=== PATIENT | female | born 1990 | race Caucasian/White ===

== ENCOUNTER 2017-12-19 11:11 | Outpatient (CLI) | payer BC | END 2017-12-19 13:11 | disposition home or self-care (01) | LOC: EDUNIT# 11:11 → LAB 11:11 | DX: J38.1 Polyp of vocal cord and larynx (principal) ==

== ENCOUNTER 2017-12-27 08:59 | Outpatient (CLI) | payer BC ==
[2017-12-19 11:51] LABS: BLOOD UREA NITROGEN 15 mg/dL (7-18); CREATININE 0.9 MG/DL (0.55-1.30)
--- NOTE | 2017-12-30 10:59 | Diagnostic Imaging Report ---
Indication: 27-year-old female with left vocal cord polyp Technique: Technique coronal T2 STIR, sagittal T 2 fast spin echo, coronal T1 fast spin echo, axial T2 STIR, axial T1 fast spin echo, axial T2 fat saturated, precontrast axial T1 fat saturated, postcontrast axial, coronal, and delayed axial T1 spin-echo images obtained through the neck. Comparison: Findings: There is an exophytic polypoid mass arising in the left side of the larynx at or just above the the true vocal cord. This measures approximately 9 x 9 mm in diameter. On the T2-weighted images, this is uniformly high signal intensity which is limited to the lesion itself. The subjacent vocal cord appears unremarkable.. On the T1-weighted images, there is intermediate in intensity, intensity similar to that of muscle. On the postcontrast images, there is enhancement of the periphery of the lesion, but not more centrally. The enhancing area measures approximately 5 x 4 mm. No significant change in enhancement pattern is demonstrated between the early and the delayed images. No cervical adenopathy demonstrated. No cervical mass seen elsewhere. No other unusual contrast enhancement is demonstrated. The thyroid is unremarkable. There is bilateral maxillary sinus polyposis. The cervical spine and spinal cord appear unremarkable. The lung apices appear unremarkable. Impression: 9 x 9 mm polypoid exophytic mass arising in the left larynx, at or just above the level of the true vocal cord. This appears to be entirely exophytic. Signal characteristics are nonspecific. There is uniform very high T2 signal. However, the enhancement pattern is less characteristic, as there is only enhancement of the periphery of the lesion and no evidence of delayed filling in. No evidence of cartilaginous invasion or lymphadenopathy. 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 Leal at the time of interpretation
== END 2017-12-27 10:59 | disposition home or self-care (01) ==
LOC: MRI 08:59
DX: J38.1 Polyp of vocal cord and larynx (principal); J32.0 Chronic maxillary sinusitis
CPT/HCPCS: 36415; 70543; 82565; 84520; A9585

== ENCOUNTER 2018-01-07 05:47 | Day surgery (SDC) | payer BC ==
[~2018-01-07] VITALS: Ht 167.6 cm; Wt 74.8 kg
[2018-01-07] VITALS (9 sets, daily range): BP systolic 121–134; BP diastolic 74–87
[2018-01-07] MEDS ORDERED: Propofol 200mg/20ml IV ONE (05:48)
[2018-01-07] MEDS ORDERED: Zemuron 50mg/5ml Inj IV ONE (05:48)
[2018-01-07] MEDS ORDERED: LR 1000ml ONE (05:48)
[2018-01-07] MEDS ORDERED: fentaNYL 100 mcg/2 mL IV ONE (05:48)
[2018-01-07] MEDS ORDERED: Midazolam 2mg/2ml Inj ONE (05:48)
[2018-01-07] MEDS ORDERED: Dexamethasone 4mg/ml vial ONE (05:48)
[2018-01-07] MEDS ORDERED: Lidocaine 1% MPF 10mg/ml 5ml ONE (05:48)
[2018-01-07] MEDS ORDERED: LUTERA1 EACH PO (06:25)
[2018-01-07] MEDS ORDERED: Maxitrol Opth Susp 5ml ONE (07:12)
--- NOTE | 2018-01-07 07:16 | Anethesia Preoperative Eval ---
Anesthesia Pre-op PMH/ROS General Date of Evaluation: Jan 07, 2018 Anesthesiologist: Jakub ASA Score: ASA 2 Mallampati Score Class I : Soft palate, uvula, fauces, pillars visible Class II: Soft palate, uvula, fauces visible Class III: Soft palate, base of uvula visible Class IV: Only hard plate visible Mallampati Classification: Class II Surgeon: Mel Diagnosis: Vocal cord polyp Surgical Procedure: Vocal cord polypectomy, laser excision Anesthesia History: none Family History: no anesthesia problems Allergies: Coded Allergies: PENICILLINS (Verified Allergy, Severe, Hives, 01/07/18) CLARITHROMYCIN (Verified Adverse Reaction, Unknown, halucination, 01/07/18) Medications: see eMAR Past Medical History Cardiovascular: Reports: other - MVP, diagnosed at 21, on no meds, Denies: HTN, CAD, NC, valve dz, arrhythmia Pulmonary: Denies: asthma, COPD, JUNIOR, other Gastrointestinal/Genitourinary: Denies: GERD, CRI, ESRD, other Neurologic/Psychiatric: Reports: depression/anxiety, Denies: dementia, CVA, TIA, other Endocrine: Denies: DM, hypothyroidism, steroids, other HEENT: Reports: other - Vocal cord polyp, Denies: cataract (L), cataract (R), glaucoma, [place] (L), [place] (R) Hematology/Immune: Denies: anemia, DVT, bleeding disorder, other Musculoskeletal/Integumentary: Denies: OA, RA, DJD, DDD, edema, other PSxH Narrative: wisdom teeth Anesthesia Pre-op Phys. Exam Physician Exam Last Vital Signs Date Time Temp Pulse Resp B/P (MAP) Pulse Ox O2 Delivery O2 Flow Rate FiO2 01/07/18 06:24 97.9 89 18 134/80 100 Room Air 97.9 Constitutional: NAD Cardiovascular: RRR Respiratory: CTA Airway Exam Mallampati Score: Class II MO: full ROM: full Teeth: intact Anesthesia Pre-op A/P Labs see chart Urine Test Test 01/07/18 06:00 Urine HCG, Qualitative Negative (NEGATIVE) Studies Pre-op Studies: EKG - sr Risk Assessment & Plan Assessment: ASA II Plan: GA Status Change Before Surgery: No Pre-Antibiotics Drug: Clindamycin 600mg Given Within 1 Hr of Incision: TERRY Ramos M.D. Jan 07, 2018 07:15
[2018-01-07] MEDS ORDERED: Clindamycin 600mg 50 ML IV ONE (07:20)
--- NOTE | 2018-01-07 07:54 | Pre-Procedure Note/Attestation ---
Pre-Procedure Note/Attestation Complete Prior to Procedure Planned Procedure: left Procedure Narrative: Microsuspension laryngoscopy Laser excision vocal cord tumor Indications for Procedure Pre-Operative Diagnosis: Vocal cord tumor Attestation I attest that I discussed the nature of the procedure; its benefits; risks and complications; and alternatives (and the risks and benefits of such alternatives ), prior to the procedure, with the patient (or the patient's legal office machines sales representative). I attest that, if there was a reasonable possibility of needing a blood transfusion, the patient (or the patient's legal office machines sales representative) was given the [facility] standardized written summary, pursuant to the Ronald Leander Blood Safety Act ([place] Health and Safety Code # 1645, as amended). I attest that I re-evaluated the patient just prior to the surgery and that there has been no change in the patient's H&P. IONA STRONG Jan 07, 2018 07:54
[2018-01-07] MEDS ORDERED: ceFAZolin sod 1 GM in D5W 55 ML IV ONE (08:00)
[2018-01-07] MEDS ORDERED: Dexamethasone 4mg/ml vial IVP ONE (08:00)
[2018-01-07] MEDS ORDERED: LR 1000ml 1,000 ML IVLG SCH (08:24)
--- NOTE | 2018-01-07 08:27 | Immediate Post-Op Evaluation ---
Immediate Post-Op Evalulation Immediate Post-Op Evalulation Procedure: Laser laryngoscopy with excision of polyps Date of Evaluation: Jan 07, 2018 Time of Evaluation: 08:54 IV Fluids: 700 Blood Products: 0 Estimated Blood Loss: min Urinary Output: 0 Blood Pressure Systolic: 131 Blood Pressure Diastolic: 74 Pulse Rate: 110 Respiratory Rate: 18 O2 Sat by Pulse Oximetry: 99 Temperature (Fahrenheit): 97.7 Pain Score (1-10): 0 Nausea: No Vomiting: No Complications 0 Patient Status: awake, reacts, patent, none Hydration Status: adequate Drug: Clindamycin 600mg Given Within 1 Hr of Incision: Yes Time Given: 08:00 TERRY MIXON M.D. Jan 07, 2018 08:27
--- NOTE | 2018-01-07 08:28 | 48 Hour Post Anesthesia Eval ---
Post Anesthesia Evaluation Procedure: Laser laryngoscopy with excision of polyps Date of Evaluation: Jan 07, 2018 Time of Evaluation: 09:50 Blood Pressure Systolic: 134 0: 84 Pulse Rate: 80 Respiratory Rate: 20 Temperature (Fahrenheit): 98 O2 Sat by Pulse Oximetry: 100 Airway: patent Nausea: No Vomiting: No Pain Intensity: 0 Hydration Status: adequate Cardiopulmonary Status: at baseline Mental Status/LOC: patient returned to baseline Post-Anesthesia Complications: 0 Follow-up care needed: ready to discharge TERRY MIXON M.D. Jan 07, 2018 08:28
[2018-01-07] MEDS ORDERED: DiphenhydrAMINE 50mg/ml Inj IVP PRN (08:30)
[2018-01-07] MEDS ORDERED: LORazepam Inj 2mg/ml 1ml IV PRN (08:30)
[2018-01-07] MEDS ORDERED: Hydromorphone 0.5mg/0.5ml inj IVP PRN (08:30)
[2018-01-07] MEDS ORDERED: fentaNYL 100 mcg/2 mL IV PRN (08:30)
[2018-01-07] MEDS ORDERED: Midazolam 2mg/2ml Inj IVP PRN (08:30)
--- NOTE | 2018-01-07 09:21 | Brief Operative Note ---
Immediate Post Operative Note Operative Note Pre-op Diagnosis: Vocal cord tumor Procedure: Microsuspension largyngoscopy Laser excision left vocal cord tumor. Post-op Diagnosis: same as pre-op Surgeon: Roxanna Strong Scrap Picker: none Additional Surgeons: none Anesthesiologist: Jakub Anesthesia: general Specimen: yes - Left vocal cord Complications: none Condition: stable Fluids: DrLR 500cc Estimated Blood Loss: minimal Drains: none Packing: none Implant(s) used?: No IONA STRONG Jan 07, 2018 09:21
[2018-01-07] MEDS ORDERED: Norco 5mg/325mg tab ORAL PRN (09:30)
[2018-01-07] MEDS ORDERED: HYDROmorphone 1mg/ml Carpuject SUBQ PRN (09:30)
--- NOTE | 2018-01-07 09:30 | Pre-op HX & Phy Repo 2 SIG ---
DATE OF ADMISSION: 01/07/2018 INDICATIONS FOR PROCEDURE: A 27-year-old female, who has had hoarseness for a few months following a bad cough. On exam, it appears that she has a polyp on her left true vocal fold. It was appeared to be hemorrhagic and MRI was done indicated it is only polyp. It does not extend into the vocal cord itself, but is exophytic. PAST MEDICAL HISTORY: She is allergic to clarithromycin and penicillins. PAST SURGICAL HISTORY: No surgical history. MEDICATIONS: control pills. She did have a test today. She is not . SOCIAL HISTORY: She is single, no children. PHYSICAL EXAMINATION: VITAL SIGNS: She is 167.64 cm, 74.843 kg, and BMI of 26.6. HEENT: Head: Normocephalic. Eyes: PERRA, EOMI. Lips, tongue, pharynx, and neck all normal. Vocal cord on exam last week in my office shows a vocal cord polyp. This was also verified on the MRI scan noted above. CHEST: Clear to A and P. ABDOMEN: Soft and nontender. Normoactive bowel sounds. GENITOURINARY: Not done as they are done on a regular basis by her BEET [employer]UMER and are not pertinent to this procedure. BREASTS: Not done as they are done on a regular basis by her BEET [employer]ER and are not pertinent to this procedure. EXTREMITIES: Grossly normal. NEUROLOGIC: Cranial nerves II through XII grossly normal. ASSESSMENT: Vocal cord tumor. PLAN: Microsuspension laryngoscopy and laser excision of vocal cord polyp, which is hemorrhagic. Jersey Leal M.D. DR: Teresa JOB#: [id number] CC:
--- NOTE | 2018-01-07 22:31 | Discharge Instructions ---
Discharge Instructions Discharge Instructions Follow up with: 3 days in my office-Saturday Diet: soft Resume Normal Activity?: No Activity: light activity Pneumonia Vaccine: pt refused vaccine Influenza Vaccine (Jul to Dec): pt refused vaccine Follow Up Orders pt has printed instruction which were reviewed and given to her pre op in my office last week. Return to Work/School on: Jan 21, 2018 For Surgical Patients Contact your physician for: bleeding, pain, tenderness, redness, swelling, yellowish discharge in the op. site For Congestive Heart Failure Reminder Report to your physician any weight gain of 5 pounds or more in one week. IONA STRONG Jan 07, 2018 22:31
--- NOTE | 2018-01-08 03:01 | Operative Note - Dictated ---
DATE OF OPERATION: 01/07/2018 SURGEON: Jersey Leal M.D. ENGINEERING LEADER: None. ANESTHESIOLOGIST: Dr. Call. ANESTHESIA: Oral endotracheal KIRK tube. General anesthesia. INDICATION FOR SURGERY: The patient with a vascular mass in the posterior part of her left vocal cord. PREOPERATIVE DIAGNOSIS: The patient with a vascular mass in the posterior part of her left vocal cord. POSTOPERATIVE DIAGNOSIS: The patient with a vascular mass in the posterior part of her left vocal cord. PROCEDURE: 1. Microsuspension laryngoscopy. 2. Excision with CO2 laser, left vocal cord tumor. TECHNIQUE: The patient was prepped and draped in usual manner. Time-out was performed. All were alert as this was a laser case. A KIRK tube was used, room air was used, the patient was fine on that. Moist towels were used to cover the patient's face and chest. Dedo scope was placed without difficulty in microsuspension. I was able to visualize the mass well. I then grasped the mass and pulled it medially and with the spot laser doing one spot at a time, not continuous at a setting of 3 and 4 removed the tumor. This is being sent off for permanent section. Please note that a test was done before away from the patient's body on a tongue blade verifying the laser was working. Sponge and needle count was correct. ESTIMATED BLOOD LOSS: 2 mL. COUNTS: None. DRAINS: None. The patient awake, alert, and stable in the operating room and in recovery room postop. I did speak with the family postop. Jersey Leal M.D. DR: NEYMAR JOB#: [id number] CC: LORETO
== END 2018-01-07 10:55 | disposition home or self-care (01) ==
LOC: SUR 05:47
DX: J38.1 Polyp of vocal cord and larynx (principal); J38.3 Other diseases of vocal cords; Z88.0 Allergy status to penicillin; Z79.3 Long term (current) use of hormonal contraceptives; F32.9 Major depressive disorder, single episode, unspecified; F41.9 Anxiety disorder, unspecified
CPT/HCPCS: 31572; 81025; J0690; J1100; J2250; J2704; J3010; J7120; 94003; 94150; S0077